=== PATIENT | female | born 1960 | race Caucasian/White ===

== ENCOUNTER 2017-10-29 07:27 | Day surgery (SDC) | payer OTHER ==
[~2017-10-29] VITALS: Ht 167.6 cm; Wt 79.4 kg
[2017-10-29] MEDS ORDERED: fentaNYL 0.05 MG/ML VIAL ONE (10:37)
[2017-10-29] MEDS ORDERED: LIDOCAINE 2% 100 MG/5 ML UJET TP ONE (10:37)
[2017-10-29] MEDS ORDERED: MIDAZOLAM 2 MG/2 ML VIAL ONE (10:37)
== END 2017-10-29 12:00 | disposition home or self-care (01) ==
LOC: MDS 07:27 → MMU 07:27 → MDS 12:00
PROVIDERS: ATTEND Internal Medicine Gastroenterology
DX: Z12.11 Encounter for screening for malignant neoplasm of colon (principal); K57.30 Diverticulosis of large intestine without perforation or abscess without bleeding; K64.8 Other hemorrhoids; E11.9 Type 2 diabetes mellitus without complications; Z98.890 Other specified postprocedural states; Z79.899 Other long term (current) drug therapy; Z72.89 Other problems related to lifestyle; Z88.0 Allergy status to penicillin; Z79.84 Long term (current) use of oral hypoglycemic drugs
CPT/HCPCS: 45378; 82948; J2250; J3010